=== PATIENT | female | born 1955 | race African-American/Black ===

== ENCOUNTER 2022-12-12 05:39 | Inpatient (IN) ==
[2022-12-12] MEDS ORDERED: VANCOMYCIN INJ 1,000 MG in SODIUM CHLORIDE 0.9% 250 ML IV ONE (06:00)
[2022-12-12] MEDS ORDERED: LACTATED RINGERS 1,000 ML IV SCH (06:00)
[2022-12-12] MEDS ORDERED: FAMOTIDINE 20 MG TABLET PO ONE (06:54)
[2022-12-12] MEDS ORDERED: DEXAMETHASONE 4 MG/1 ML VIAL ONE (09:25)
[2022-12-12] MEDS ORDERED: LIDOCAINE 1% 5 ML VIAL ONE (09:26)
[2022-12-12] MEDS ORDERED: ROPIVACAINE 0.5% 30 ML VIAL ONE (09:26)
[2022-12-12] MEDS ORDERED: LIDOCAINE 2% 5 ML VIAL ONE (09:43)
[2022-12-12] MEDS ORDERED: fentaNYL 100 MCG/2 ML VIAL ONE (09:43)
[2022-12-12] MEDS ORDERED: SODIUM CHLORIDE 0.9% 100 ML IV ONE (09:43)
[2022-12-12] MEDS ORDERED: propofoL 200 MG/20 ML VIAL IV ONE ×2 (09:43→11:38)
[2022-12-12] MEDS ORDERED: PHENYLEPHRINE 1 MG/10 ML SYRINGE IV ONE (09:43)
[2022-12-12] MEDS ORDERED: MIDAZOLAM 2 MG/2 ML VIAL ONE (09:43)
[2022-12-12] MEDS ORDERED: ONDANSETRON 4 MG/2 ML VIAL ONE (09:43)
[2022-12-12] MEDS ORDERED: buprenorphine HCL 0.3 MG/ML VIAL ONE (09:46)
[2022-12-12] MEDS ORDERED: TRANEXAMIC ACID 1,000 MG/10 ML VIAL ONE (10:15)
[2022-12-12] MEDS ORDERED: INFLUENZA VIRUS VACCINE 0.5 ML SYRINGE IM ONE (10:44)
[2022-12-12] MEDS ORDERED: diphenhydrAMINE CAP 25 MG CAPSULE PO PRN (10:48)
[2022-12-12] MEDS ORDERED: ZALEPLON 5 MG CAPSULE PO PRN (10:48)
[2022-12-12] MEDS ORDERED: MAGNESIUM HYDROXIDE SUSP 30 ML UDCUP PO PRN (10:48)
[2022-12-12] MEDS ORDERED: MORPHINE 2 MG/1 ML SYRINGE IV PRN ×2 (10:48)
[2022-12-12] MEDS ORDERED: ONDANSETRON 4 MG/2 ML VIAL IV PRN (10:48)
[2022-12-12] MEDS ORDERED: KETOROLAC 15 MG/1 ML VIAL IV SCH (11:00)
[2022-12-12] MEDS: LACTATED RINGERS 1,000 ML IV SCH ×2 (11:00→22:20)
[2022-12-12] MEDS: INSULIN LISPRO 100 UNIT/ML SUBCUT SCH ×3 (13:18→20:56)
[2022-12-12] MEDS: KETOROLAC 15 MG/1 ML VIAL IV SCH ×2 (14:24→19:46)
[2022-12-12] MEDS: ceFAZolin 2,000 MG/50 ML DUPLEX IV SCH ×2 (14:29→22:19)
[2022-12-12] MEDS ORDERED: hydrALAZINE 20 MG/1 ML VIAL IV PRN (15:17)
[2022-12-12] MEDS: DOCUSATE SODIUM 100 MG CAPSULE PO SCH (20:55)
[2022-12-12] MEDS: TRAVOPROST 0.004% OPH SOLN 2.5 ML BOTTLE BOTH EYES SCH (20:57)
[2022-12-12] MEDS ORDERED: GLUCAGON 1 MG VIAL IM PRN (21:57)
[2022-12-12] MEDS ORDERED: DEXTROSE 10% 250 ML BAG IV PRN (21:59)
[2022-12-13] MEDS: KETOROLAC 15 MG/1 ML VIAL IV SCH (01:01)
[2022-12-13] MEDS: FONDAPARINUX 2.5 MG/0.5 ML SYRINGE SUBCUT SCH (04:16)
[2022-12-13 05:33] LABS: Basophils % 0.1 % (0.0-0.8); Hematocrit 34.2 VOL% (35.7-47.0); Hemoglobin 11.4 GM/DL (12.0-16.0); Immature Granulocytes % 0.5 %; Immature Granulocytes Absolute 0.05 #; Lymphocytes # 0.9 10*3/uL (1.4-4.0); Lymphocytes % 9.2 % (21.3-54.2); Mean Corpuscular HGB Conc 33.3 GM/DL (32-36); Mean Corpuscular Volume 91.7 FL (87-102); Mean Platelet Volume 10.2 FL (9.6-12.0); Monocytes # 0.7 10*3/uL (0.11-0.8); Monocytes % 7.1 % (1.7-12.7); Neutrophils % 83.1 % (38.7-73.9); Platelet Count 229 T/CUMM (130-400); Red Blood Count 3.73 MC/CUMM (3.8-5.5); Red Cell Distribution Width 13.5 % (9.3-17.3); White Blood Count 9.5 T/CUMM (4-12)
[2022-12-13 06:02] LABS: Calcium 9.2 MG/DL (8.5-10.1); Osmolality,Calculated 281.3 MOS/KG (273-304); Potassium 3.9 MMOL/L (3.5-5.1)
[2022-12-13] MEDS: LACTATED RINGERS 1,000 ML IV SCH (06:08)
[2022-12-13] MEDS: INSULIN LISPRO 100 UNIT/ML SUBCUT SCH ×4 (07:34→20:56)
[2022-12-13] MEDS ORDERED: GLIMEPIRIDE 2 MG TABLET PO SCH (09:00)
[2022-12-13] MEDS: DOCUSATE SODIUM 100 MG CAPSULE PO SCH ×2 (09:26→20:56)
[2022-12-13] MEDS: ASPIRIN EC 81 MG TABLET PO SCH (09:26)
[2022-12-13] MEDS: lisinopriL 20 MG TABLET PO SCH (09:26)
[2022-12-13] MEDS: MULTIVITAMIN (CENTRUM) TABLET PO SCH (09:26)
[2022-12-13] MEDS: KETOROLAC 15 MG/1 ML VIAL IV PRN ×2 (09:27→16:12)
[2022-12-13] MEDS: carvediloL 25 MG TABLET PO SCH (16:12)
[2022-12-13] MEDS: TRAVOPROST 0.004% OPH SOLN 2.5 ML BOTTLE BOTH EYES SCH (20:56)
[2022-12-13] MEDS ORDERED: SIMVASTATIN 20 MG TABLET PO SCH (21:00)
[2022-12-14] MEDS: KETOROLAC 15 MG/1 ML VIAL IV PRN ×2 (00:04→08:22)
[2022-12-14 05:34] LABS: Basophils % 0.3 % (0.0-0.8); Eosinophils # 0.2 10*3/uL (0.0-0.87); Eosinophils % 2.3 % (0.00-10.9); Hematocrit 32.3 VOL% (35.7-47.0); Hemoglobin 10.3 GM/DL (12.0-16.0); Immature Granulocytes % 0.5 %; Immature Granulocytes Absolute 0.04 #; Lymphocytes % 22.8 % (21.3-54.2); Mean Corpuscular HGB Conc 31.9 GM/DL (32-36); Mean Corpuscular Volume 94.7 FL (87-102); Mean Platelet Volume 10.4 FL (9.6-12.0); Monocytes # 0.8 10*3/uL (0.11-0.8); Monocytes % 8.6 % (1.7-12.7); Neutrophils % 65.5 % (38.7-73.9); Platelet Count 199 T/CUMM (130-400); Red Blood Count 3.41 MC/CUMM (3.8-5.5); White Blood Count 8.8 T/CUMM (4-12)
[2022-12-14] MEDS: FONDAPARINUX 2.5 MG/0.5 ML SYRINGE SUBCUT SCH (05:57)
[2022-12-14] MEDS: carvediloL 25 MG TABLET PO SCH ×2 (08:34→17:17)
[2022-12-14] MEDS: DOCUSATE SODIUM 100 MG CAPSULE PO SCH (08:34)
[2022-12-14] MEDS: MULTIVITAMIN (CENTRUM) TABLET PO SCH (08:34)
[2022-12-14] MEDS: ASPIRIN EC 81 MG TABLET PO SCH (08:34)
[2022-12-14] MEDS: lisinopriL 20 MG TABLET PO SCH (08:35)
[2022-12-14] MEDS: INSULIN LISPRO 100 UNIT/ML SUBCUT SCH ×3 (08:39→17:05)
[2022-12-14 15:52] VITALS: BP 140/78
== END 2022-12-14 17:59 | disposition home or self-care (01) | DRG 470 ==
LOC: N.SDSINP 05:39 → N.OR 05:39 → N.SDSINP 05:40 → N.3E 10:48
PROVIDERS: ADMIT Orthopaedic Surgery; ATTEND Orthopaedic Surgery